=== PATIENT | female | born 1965 | race Caucasian/White ===

== ENCOUNTER 2017-01-24 14:41 | Emergency (ER) | payer OTHER ==
[~2017-01-24] VITALS: Ht 162.6 cm; Wt 81.8 kg
[2017-01-24 15:02] VITALS: Ht 162.6 cm; Wt 81.8 kg
[2017-01-24] MEDS ORDERED: ONDANSETRON (ODT) 4 MG TAB ODT STA (15:20)
[2017-01-24] MEDS ORDERED: HYDROCODONE/APAP (10/325) TAB PO ONE (15:30)
[2017-01-24] MEDS ORDERED: HYDR-902 PO (16:06)
--- NOTE | 2017-01-24 16:17 | RADRPT ---
PROCEDURE: XR Ankle. CLINICAL INDICATION: Pain TECHNIQUE: AP, oblique and lateral views of the right ankle were performed. COMPARISON: None. FINDINGS: There is an acute, mildly displaced, right distal fibular fracture beginning at the level of the ank le mortise. The medial malleolus, and posterior malleolus appear intact. There is severe soft tissue swelling with a moderate sized ankle effusion. The talus, calcaneus, and metatarsals appear intact. There is a 3 mm heel spur. IMPRESSION: Acute, mildly displaced, right distal fibular fracture beginning at the level of the ankle mortise w ith severe soft tissue swelling, and a moderate sized ankle effusion. No additional fractures. RPTAT: QQ .Johanna Beard MD, MD Date Time Electronically viewed and signed by .Johanna Beard MD, on 01/24/2017 16:15 .F/
--- NOTE | 2017-01-24 16:51 | ERD ---
ER Documentation Chief Complaint Date/Time DATE: 01/24/17 TIME: 16:49 Chief Complaint RT ANKLE PAIN/DEFORMITY S/P GROUND LEVEL MECHANICAL FALL HPI Patient is a 51-year-old female with no medical problems who presents with right ankle pain. The patient was brought in by ambulance. The patient "twisted her ankle" when she stepped off of a curb. She says that "I heard a crack". This happened just prior to arrival. The pain is sharp. Worse with movement. She has had no treatment as of yet. ROS All systems reviewed and are negative except as per history of present illness. Medications Home Meds Active Scripts Hydrocodone/Acetaminophen (Garnett 10-325 Tablet) 1 Each Tablet, 1 TAB PO Q6H Y for PAIN, #12 TAB Prov:RODRIGO RODRIGUEZ MD 01/24/17 Allergies Allergies: Coded Allergies: No Known Allergy (Unverified , 01/24/17) PMhx/Soc History of Surgery: No Anesthesia Reaction: No Hx Neurological Disorder: No Hx Respiratory Disorders: No Hx Cardiac Disorders: No Hx Psychiatric Problems: No Hx Miscellaneous Medical Probl: Yes (hyperactive bladder) Hx Alcohol Use: Yes (social drinker) Hx Substance Use: No Hx Tobacco Use: No Smoking Status: Never smoker FmHx Family History: No diabetes Physical Exam Vitals Vital Signs Date Time Temp Pulse Resp B/P Pulse Ox O2 Delivery O2 Flow Rate FiO2 01/24/17 15:02 83 16 128/68 99 Physical Exam Const: No acute distress Head: Atraumatic Eyes: Normal Conjunctiva ENT: Normal External Ears, Nose and Mouth. Neck: Full range of motion..~ No meningismus. Resp: Clear to auscultation bilaterally Cardio: Regular rate and rhythm, no murmurs Abd: Soft, non tender, non distended. Normal bowel sounds Skin: No petechiae or rashes Back: No midline or flank tenderness Ext: Swelling to the right ankle with pain over the lateral malleolus Neur: Awake and alert Psych: Normal Mood and Affect Results 24 hrs Current Medications Medications (Trade) Dose Ordered Sig/Landry Route PRN Reason Start Time Stop Time Status Last Admin Dose Admin Acetaminophen/ Hydrocodone Bitart (Garnett (10/325)) 1 tab ONCE ONCE PO 01/24/17 15:30 01/24/17 15:31 DC 9/28/17 15:27 Ondansetron HCl (Zofran Odt) 4 mg ONCE STAT ODT 01/24/17 15:20 01/24/17 15:22 DC 01/24/17 15:27 Procedures/MDM X-ray Ankle 3V Interpreted by me: Bones: Distal fibula fracture without dislocation Joints: No dislocation Splint Note Type: Posterior ankle Location: Right lower extremity Indication: Distal fibula fracture Splint Assessment: Neurovascularly intact post splint placement with good fit. Patient is a 51-year-old female presents with right ankle pain after stepping off of a curb. She has a closed right distal fibula fracture. The patient will be placed in a splint and given crutches. She was given Garnett for pain. She will need to follow-up with Dr. Slaughter with orthopedic surgeon of her choice. She can return for any worsening symptoms. The patient understands the plan is okay for discharge at this time. There is no pain at the right knee. Departure Diagnosis: Primary Impression: Fibula fracture Encounter type: initial encounter Fibula location: distal Fracture type: closed Fracture morphology: unspecified fracture morphology Laterality: right Qualified Code: S82.831A - Closed fracture of distal end of right fibula , unspecified fracture morphology, initial encounter Condition: Fair Patient Instructions: Ankle Fracture (Distal Fibula), Closed Referrals: ROBINA SLAUGHTER MD Additional Instructions: SPECIALIST: YOU HAVE A MEDICAL CONDITION WHICH REQUIRES YOU TO SEE A SPECIALIST WITHIN THE NEXT 1-2 DAYS. PLEASE FOLLOW UP WITH YOUR PRIMARY PHYSICIAN FOR REFFERAL.IF YOU DO NOT HAVE A PRIMARY CARE PHYSICIAN AND/OR YOU CAN NOT AFFORD TO SEE A PHYSICIAN THE FOLLOWING RESOURCES HAVE BEEN SUPPLIED TO YOU. IT IS YOUR RESPONSIBILITY TO BE SEEN BY THE SPECIALIST RODRIGO RODRIGUEZ MD Jan 24, 2017 16:51
[2017-01-24 17:13] VITALS: BP 132/74; PULSE 76; RESP 18; TEMP 98.1
== END 2017-01-24 17:18 | disposition home or self-care (01) ==
LOC: E/R 14:41
DX: S82.831A Other fracture of upper and lower end of right fibula, initial encounter for closed fracture (principal); W18.39XA Other fall on same level, initial encounter; Y92.9 Unspecified place or not applicable